=== PATIENT | female | born 1945 | race Caucasian/White ===

== ENCOUNTER 2018-06-15 12:11 | Outpatient (CLI) | payer MEDICARE | END 2018-06-15 23:59 | disposition home or self-care (01) | LOC: CARD 12:11 | DX: I34.8 Other nonrheumatic mitral valve disorders (principal); I51.7 Cardiomegaly | CPT/HCPCS: 93307-TC ==

== ENCOUNTER 2019-01-29 16:51 | Emergency (ER) | payer MEDICARE ==
[~2019-01-29] VITALS: Ht 154.9 cm; Wt 69.9 kg
[2019-01-29 17:10] VITALS: BP 174/85
--- NOTE | 2019-01-29 18:48 | NUR ---
RADIOLOGY AT BEDSIDE FOR LUMBAR SPINE XRAY.
== END 2019-01-29 20:14 | disposition home or self-care (01) ==
LOC: ER 17:00
DX: M54.42 Lumbago with sciatica, left side (principal); E11.9 Type 2 diabetes mellitus without complications
CPT/HCPCS: 72110-TC

== ENCOUNTER 2019-06-22 13:27 | Outpatient (CLI) | payer MEDICARE | END 2019-06-22 23:59 | disposition home or self-care (01) | LOC: CARD 13:27 | DX: I51.7 Cardiomegaly (principal); I34.8 Other nonrheumatic mitral valve disorders | CPT/HCPCS: 93307-TC ==

== ENCOUNTER 2020-06-13 13:52 | Outpatient (CLI) | payer MEDICARE | END 2020-06-13 23:59 | disposition home or self-care (01) | LOC: CARD 13:52 | DX: I51.7 Cardiomegaly (principal) | CPT/HCPCS: 93307-TC ==

== ENCOUNTER 2021-06-13 14:46 | Outpatient (CLI) | payer SELFPAY | END 2021-06-13 23:59 | disposition home or self-care (01) | LOC: CARD 14:46 | DX: I08.1 Rheumatic disorders of both mitral and tricuspid valves (principal) | CPT/HCPCS: 93307-TC ==

== ENCOUNTER 2021-08-17 08:27 | Emergency (ER) | payer MEDICARE ==
[~2021-08-17] VITALS: Ht 154.9 cm; Wt 65.8 kg
--- NOTE | 2021-08-17 08:40 | NUR ---
DR. WONG AT FOR ALEXIS.
--- NOTE | 2021-08-17 08:56 | NUR ---
c/o heart palpitations on and off x 2 months, worst yesterday, denies pain. PT AAOX4, VSS. RR EVEN & UNLABORED. DENIES CP, SOB, DIZZINESS, N/V AT THIS TIME. PLACED ON [employer], SR. WILL CONT TO MONITOR.
[2021-08-17 09:05] LABS: BASOPHILS # (AUTO) 0.1 K/uL (0.0-0.2); BASOPHILS % (AUTO) 0.9 % (0.0-2.0); EOSINOPHILS % (AUTO) 1.9 % (0.0-6.0); HEMATOCRIT 35 % (33-45); HEMOGLOBIN 11.7 g/dL (11.5-14.8); LYMPHOCYTES # (AUTO) 2.1 K/uL (0.8-4.8); LYMPHOCYTES % (AUTO) 30.3 % (20.0-44.0); MEAN CORPUSCULAR HGB CONC 33 g/dl (31.0-36.0); MEAN CORPUSCULAR VOLUME 91 fL (82-100); MONOCYTES # (AUTO) 0.5 K/uL (0.1-1.30); MONOCYTES % (AUTO) 7.3 % (2.0-12.0); NEUTROPHILS # (AUTO) 4.1 K/uL (1.8-8.9); NEUTROPHILS % (AUTO) 59.6 % (43.0-81.0); PLATELET COUNT (AUTO) 276 K/uL (150-450); RED BLOOD CELL COUNT(AUTO) 3.85 MIL/uL (4.0-5.2); WHITE BLOOD COUNT (AUTO) 6.8 K/uL (4.3-11.0)
[2021-08-17 09:44] LABS: ALBUMIN 3.5 g/dL (3.4-5.0); BILIRUBIN,DIRECT 0.1 mg/dL (0.0-0.2); BILIRUBIN,TOTAL 0.4 mg/dL (0.2-1.0); CALCIUM, SERUM 8.6 mg/dL (8.5-10.1); CREATININE 1.3 mg/dL (0.6-1.3); POTASSIUM 4.4 mmol/L (3.5-5.1); TOTAL PROTEIN, SERUM 7.5 g/dL (6.4-8.2)
[2021-08-17] MEDS ORDERED: OLME20TA23 PO (09:48)
[2021-08-17] MEDS ORDERED: ASPI-1420 PO (09:48)
[2021-08-17] MEDS ORDERED: ROSU10TA29 PO (09:48)
[2021-08-17] MEDS ORDERED: CARV3.122 PO (09:48)
[2021-08-17] MEDS ORDERED: GLIP10TA11 PO (09:48)
[2021-08-17] MEDS ORDERED: METF-440 PO (09:48)
[2021-08-17] MEDS ORDERED: SITA100T PO (09:48)
--- NOTE | 2021-08-17 10:06 | NUR ---
PT REFUSED TO GET ADMITTED, PT SIGNED AMA FORM. ERMD EXPLAINED RISKS TO PT ON LEAVING AMA. PT ACKNOWLEDGED WITH VERBAL UNDERSTANDING. IV removed. Catheter intact and site benign. Pressure and 4x4 applied to site. No bleeding noted.
[2021-08-17 10:08] VITALS: BP 162/87
== END 2021-08-17 10:09 | disposition left against medical advice (07) ==
LOC: ER 08:30
DX: R06.00 Dyspnea, unspecified (principal); E11.9 Type 2 diabetes mellitus without complications; Z79.899 Other long term (current) drug therapy; Z79.84 Long term (current) use of oral hypoglycemic drugs; Z79.82 Long term (current) use of aspirin
CPT/HCPCS: 36415; 71045-TC; 80048-TC; 80076-TC; 84484-TC; 85025-TC

== ENCOUNTER 2023-11-17 17:03 | Inpatient (IN) | payer MEDICARE, OTHER ==
[~2023-11-17] VITALS: Ht 154.9 cm; Wt 57.2 kg
[~2023-11-17 17:03] MED LIST: ASPI-1420 PO; CARV3.122 PO; GLIP10TA11 PO; METF-440 PO; OLME20TA23 PO; ROSU10TA29 PO; SITA100T PO
[2023-11-17] MEDS: IV NS 0.9% 1,000 ML BAG IV ONE ×2 (17:26→20:14)
[2023-11-17 17:59] LABS: BASOPHILS # (AUTO) 0.1 K/uL (0.0-0.2); BASOPHILS % (AUTO) 0.7 % (0.0-2.0); HEMATOCRIT 38 % (33-45); HEMOGLOBIN 12.2 g/dL (11.5-14.8); LYMPHOCYTES # (AUTO) 1.2 K/uL (0.8-4.8); LYMPHOCYTES % (AUTO) 10.3 % (20.0-44.0); MEAN CORPUSCULAR HEMOGLOBIN 28 PG (26.0-33.0); MEAN CORPUSCULAR HGB CONC 32 g/dl (31.0-36.0); MEAN CORPUSCULAR VOLUME 87 fL (82-100); MONOCYTES # (AUTO) 0.7 K/uL (0.1-1.30); PLATELET COUNT (AUTO) 297 K/uL (150-450); RED BLOOD CELL COUNT(AUTO) 4.41 MIL/uL (4.0-5.2); RED CELL DISTRIBUTION WIDTH 12.5 % (11.5-15.0)
[2023-11-17 18:12] LABS: INR 0.94 (0.91-1.10); PARTIAL THROMBOPLASTIN TIME 18.3 SEC (24.3-34.3); PROTHROMBIN TIME 9.7 SECS (9.2-11.1)
[2023-11-17 18:19] LABS: LACTIC ACID 1.8 mmol/L (0.4-2.0)
[2023-11-17 18:40] LABS: ALANINE AMINOTRANSFERASE 21 U/L (12-78); ALBUMIN 3.1 g/dL (3.4-5.0); ALCOHOL, BLOOD < 3 mg/dL (0-10); ALKALINE PHOSPHATASE 87 U/L (46-116); ASPARTATE AMINOTRANSFERASE 29 U/L (15-37); BILIRUBIN,DIRECT 0.2 mg/dL (0.0-0.2); BILIRUBIN,TOTAL 0.6 mg/dL (0.2-1.0); CALCIUM, SERUM 8.6 mg/dL (8.5-10.1); CARBON DIOXIDE 22 mmol/L (21-32); CHLORIDE 99 mmol/L (98-107); CREATININE 1.3 mg/dL (0.6-1.3); POTASSIUM 4.6 mmol/L (3.5-5.1); SODIUM SERUM 130 mmol/L (136-145); TOTAL PROTEIN, SERUM 7.2 g/dL (6.4-8.2); UREA NITROGEN, BLOOD 40 mg/dL (7-18)
[2023-11-17 18:42] LABS: ACETAMINOPHEN <10 ug/ml (10-30); GLUCOSE 511 mg/dL (74-106)
[2023-11-17 18:49] LABS: APPEARANCE,URINE CLEAR (CLEAR); BILIRUBIN,URINE NEGATIVE (NEGATIVE); BLOOD, URINE 1+ Ery/uL (NEGATIVE); COLOR,URINE YELLOW (YELLOW); KETONES,URINE TRACE mg/dL (NEGATIVE); LEUKOCYTE ESTERASE ,URINE NEGATIVE (NEGATIVE); NITRITE, URINE NEGATIVE (NEGATIVE); PH,URINE 6.5 (5.0-8.0); PROTEIN,URINE 1+ mg/dl (NEGATIVE); UGLUCOSE 3+ mg/dL (NEGATIVE); UROBILINOGEN,URINE 0.2 EU/dL (0.2)
[2023-11-17 18:57] LABS: THYROID STIMULATING HORMONE 0.757 uIU/mL (0.358-3.74)
[2023-11-17 19:23] LABS: ADD URINE CULTURE NO; BACTERIA,URINE Rare /HPF (None Seen); RBC,URINE 0-2 /HPF (0-2); SQUAMOUS EPITHELIAL CELL,UR Rare /HPF (None Seen); WBC,URINE NONE SEEN /HPF (0-3)
[2023-11-17 19:58] LABS: AMPHETAMINE, URINE NEGATIVE (NEGATIVE); BARBITURATE, URINE NEGATIVE (NEGATIVE); BENZODIAZEPINE, URINE NEGATIVE (NEGATIVE); CANNABINOID, URINE NEGATIVE (NEGATIVE); COCCAINE, URINE NEGATIVE (NEGATIVE); OPIATE, URINE NEGATIVE (NEGATIVE); PHENCYCLIDINE SCREEN,URINE NEGATIVE (NEGATIVE)
[2023-11-17 22:00] VITALS: BP 112/84; TEMP 97.9; TEMP 98.9; O2SAT 96
[2023-11-17] MEDS ORDERED: Z GUARD REMEDY 4 OZ OINT TP PRN (22:30)
[2023-11-17] MEDS ORDERED: ACETAMINOPHEN 325 MG TABLET PO PRN (22:30)
[2023-11-17] MEDS ORDERED: MAG HYDROX/AL HYDROX/SIMETH 30 ML UDC PO PRN (22:30)
[2023-11-17] MEDS ORDERED: ONDANSETRON HCL/PF 4 MG/2 ML VIAL IVP PRN (22:30)
[2023-11-17] MEDS ORDERED: ZOLPIDEM TARTRATE 5 MG TABLET PO PRN (22:30)
[2023-11-17] MEDS ORDERED: DEXTROSE 50%-WATER 50 ML DISP.SYRIN IV PRN (22:30)
[2023-11-17] MEDS ORDERED: MAGNESIUM HYDROXIDE 30 ML UDC PO PRN (22:30)
[2023-11-17] MEDS: ENOXAPARIN SODIUM 40 MG/0.4 ML DISP.SYRIN SQ SCH (22:30)
[2023-11-17] MEDS ORDERED: OLANZAPINE 10 MG VIAL IM ONE (23:59)
[2023-11-18] MEDS: OLANZAPINE 10 MG VIAL IM ONE (00:10)
[2023-11-18] MEDS: IV NS 0.9% 1,000 ML IV PRN (00:23)
[2023-11-18 05:00] VITALS: BP 153/81; TEMP 98.1; O2SAT 94
[2023-11-18 06:46] LABS: BASOPHILS % (AUTO) 0.6 % (0.0-2.0); EOSINOPHILS # (AUTO) 0.1 K/uL (0.0-0.7); EOSINOPHILS % (AUTO) 1.2 % (0.0-6.0); HEMATOCRIT 33 % (33-45); HEMOGLOBIN 10.7 g/dL (11.5-14.8); LYMPHOCYTES # (AUTO) 2.2 K/uL (0.8-4.8); LYMPHOCYTES % (AUTO) 29.2 % (20.0-44.0); MEAN CORPUSCULAR HEMOGLOBIN 28 PG (26.0-33.0); MEAN CORPUSCULAR HGB CONC 33 g/dl (31.0-36.0); MEAN CORPUSCULAR VOLUME 86 fL (82-100); MONOCYTES # (AUTO) 0.6 K/uL (0.1-1.30); MONOCYTES % (AUTO) 8.5 % (2.0-12.0); NEUTROPHILS # (AUTO) 4.5 K/uL (1.8-8.9); NEUTROPHILS % (AUTO) 60.5 % (43.0-81.0); PLATELET COUNT (AUTO) 282 K/uL (150-450); RED BLOOD CELL COUNT(AUTO) 3.76 MIL/uL (4.0-5.2); RED CELL DISTRIBUTION WIDTH 12.6 % (11.5-15.0); WHITE BLOOD COUNT (AUTO) 7.4 K/uL (4.3-11.0)
[2023-11-18] MEDS: BLOOD SUGAR DIAGNOSTIC 1 EACH STRIP IN SCH (06:54)
[2023-11-18 07:03] LABS: CALCIUM, SERUM 8.8 mg/dL (8.5-10.1); MAGNESIUM 1.9 mg/dL (1.8-2.4); PHOSPHORUS 3.5 mg/dL (2.5-4.9); POTASSIUM 3.9 mmol/L (3.5-5.1)
[2023-11-18 07:24] LABS: THYROID STIMULATING HORMONE 0.944 uIU/mL (0.358-3.74)
[2023-11-18 08:15] VITALS: BP 132/93; TEMP 98.5; O2SAT 94
[2023-11-18] MEDS: PANTOPRAZOLE 40 MG VIAL IV SCH (08:58)
[2023-11-18] MEDS: INSULIN REGULAR, HUMAN 100 UNIT/ML 3 ML VIAL SQ PRN (11:35)
[2023-11-18 12:00] VITALS: BP 119/64; TEMP 97.7; O2SAT 96
[2023-11-18 15:53] LABS: CREATININE, URINE 53.4 MG/DL (30.0-125.0)
[2023-11-18 16:00] VITALS: BP 131/71; TEMP 97.7; O2SAT 94
[2023-11-18 20:00] VITALS: BP 134/63; TEMP 98.6; O2SAT 96
[2023-11-19 06:42] LABS: BASOPHILS % (AUTO) 0.4 % (0.0-2.0); EOSINOPHILS # (AUTO) 0.1 K/uL (0.0-0.7); EOSINOPHILS % (AUTO) 1.7 % (0.0-6.0); HEMATOCRIT 31 % (33-45); HEMOGLOBIN 10.3 g/dL (11.5-14.8); LYMPHOCYTES # (AUTO) 2.4 K/uL (0.8-4.8); MEAN CORPUSCULAR HEMOGLOBIN 29 PG (26.0-33.0); MEAN CORPUSCULAR HGB CONC 33 g/dl (31.0-36.0); MEAN CORPUSCULAR VOLUME 87 fL (82-100); MONOCYTES # (AUTO) 0.7 K/uL (0.1-1.30); MONOCYTES % (AUTO) 8.1 % (2.0-12.0); NEUTROPHILS % (AUTO) 60.8 % (43.0-81.0); PLATELET COUNT (AUTO) 257 K/uL (150-450); RED BLOOD CELL COUNT(AUTO) 3.58 MIL/uL (4.0-5.2); RED CELL DISTRIBUTION WIDTH 12.8 % (11.5-15.0); WHITE BLOOD COUNT (AUTO) 8.2 K/uL (4.3-11.0)
[2023-11-19 07:00] VITALS: BP 142/71; TEMP 98.2; O2SAT 95
[2023-11-19 07:12] LABS: CALCIUM, SERUM 8.6 mg/dL (8.5-10.1); CREATININE 1.1 mg/dL (0.6-1.3); POTASSIUM 3.9 mmol/L (3.5-5.1)
[2023-11-19] MEDS: ESCITALOPRAM OXALATE (10 MG) 10 MG TABLET PO SCH (10:56)
[2023-11-19] MEDS: INSULIN GLARGINE, 100 UNIT/ML CARTRIDGE SQ SCH (11:57)
[2023-11-19 16:00] VITALS: BP 133/66; TEMP 98.6; O2SAT 96
[2023-11-19] MEDS: NEOMY SULF/BACITRAC ZN/POLY 15 GM TUBE TP SCH (17:23)
[2023-11-19 20:00] VITALS: BP 136/56; TEMP 99.5; O2SAT 96
[2023-11-20 06:22] LABS: BASOPHILS % (AUTO) 0.2 % (0.0-2.0); EOSINOPHILS # (AUTO) 0.1 K/uL (0.0-0.7); EOSINOPHILS % (AUTO) 1.3 % (0.0-6.0); HEMATOCRIT 28 % (33-45); HEMOGLOBIN 9.1 g/dL (11.5-14.8); LYMPHOCYTES # (AUTO) 2.6 K/uL (0.8-4.8); MEAN CORPUSCULAR HEMOGLOBIN 29 PG (26.0-33.0); MEAN CORPUSCULAR HGB CONC 33 g/dl (31.0-36.0); MEAN CORPUSCULAR VOLUME 88 fL (82-100); MONOCYTES # (AUTO) 0.8 K/uL (0.1-1.30); MONOCYTES % (AUTO) 9.3 % (2.0-12.0); NEUTROPHILS # (AUTO) 4.9 K/uL (1.8-8.9); NEUTROPHILS % (AUTO) 58.2 % (43.0-81.0); PLATELET COUNT (AUTO) 244 K/uL (150-450); RED BLOOD CELL COUNT(AUTO) 3.16 MIL/uL (4.0-5.2); WHITE BLOOD COUNT (AUTO) 8.5 K/uL (4.3-11.0)
[2023-11-20 06:33] LABS: CALCIUM, SERUM 8.1 mg/dL (8.5-10.1); CREATININE 1.2 mg/dL (0.6-1.3); POTASSIUM 3.9 mmol/L (3.5-5.1)
[2023-11-20 07:00] VITALS: BP_SYST 137; BP_SYST 149; BP_DIAS 64; BP_DIAS 71; TEMP 98.6; TEMP 99.1; O2SAT 100; O2SAT 94
[2023-11-20] MEDS: ASPIRIN 81 MG TAB.CHEW PO SCH (08:55)
[2023-11-20] MEDS: PANTOPRAZOLE 40 MG/PACK PACK PO SCH (08:55)
[2023-11-20] MEDS ORDERED: Insulin Glargine,Hum SQ (10:44)
[2023-11-20] MEDS ORDERED: ASPI-1169 PO (10:44)
[2023-11-20] MEDS ORDERED: METF-440 PO (10:44)
[2023-11-20] MEDS ORDERED: ESCI10TA PO (10:44)
[2023-11-20 16:12] VITALS: BP 146/68; TEMP 98.8; O2SAT 99
[2023-11-23 00:06] LABS: FOLIC ACID > 20.0 ng/mL (>3.0)
== END 2023-11-20 20:30 | DRG 637 ==
LOC: ER 17:07 → TELE 21:23 → MED 11-18 18:05
PROVIDERS: ADMIT Nurse Practitioner Acute Care; ATTEND Internal Medicine
DX: E11.65 Type 2 diabetes mellitus with hyperglycemia (principal); G93.41 Metabolic encephalopathy; N17.9 Acute kidney failure, unspecified; L02.31 Cutaneous abscess of buttock; F02.83 Dementia in other diseases classified elsewhere, unspecified severity, with mood disturbance; L02.416 Cutaneous abscess of left lower limb; D64.9 Anemia, unspecified; E86.0 Dehydration; Z79.4 Long term (current) use of insulin; Z86.73 Personal history of transient ischemic attack (TIA), and cerebral infarction without residual deficits; L60.3 Nail dystrophy; M89.8X9 Other specified disorders of bone, unspecified site; M20.12 Hallux valgus (acquired), left foot; M20.11 Hallux valgus (acquired), right foot; S80.12XA Contusion of left lower leg, initial encounter; S80.11XA Contusion of right lower leg, initial encounter; X58.XXXA Exposure to other specified factors, initial encounter; Y93.9 Activity, unspecified; Y92.009 Unspecified place in unspecified non-institutional (private) residence as the place of occurrence of the external cause; F32.9 Major depressive disorder, single episode, unspecified; G30.9 Alzheimer's disease, unspecified; R00.0 Tachycardia, unspecified; I95.9 Hypotension, unspecified; Z79.84 Long term (current) use of oral hypoglycemic drugs
CPT/HCPCS: 36415; 70450-TC; 71045-TC; 80048-TC; 80061-TC; 80076-TC; 81001; 82570-TC; 82607-TC; 82962-TC; 83605-TC; 83735-TC; 83921; 84100-TC; 84300-TC; 84443-TC; 84484-TC; 85025-TC; 85730-TC; 87040-TC; 87086-TC; 93880-TC; 97110-TC; 97530-TC; 97535-TC; A6253; A6403; C9113; G0378; G0480; J1650; J1815; J3490; J7030